=== PATIENT | female | born 1970 | race Caucasian/White ===

== ENCOUNTER 2016-12-21 15:26 | Emergency (ER) | payer MEDICAID ==
[2016-12-21] MEDS ORDERED: HYDROmorphone 1 MG/ML Syringe IM ONE (16:54)
--- NOTE | 2016-12-21 16:57 | EDM.PDOC ---
ED HPI GENERAL MEDICAL PROBLEM - General Chief Complaint: General Stated Complaint: SENT FROM DENTAL CLINIC WITH HIGH BP Time Seen by Provider: 12/21/16 16:51 Source of Information: Reports: Patient, RN Notes Reviewed History Limitations: Reports: No Limitations - History of Present Illness INITIAL COMMENTS - FREE TEXT/NARRATIVE: 46-year-old female presents emergency department today for elevated blood pressure she was sent over from the dental clinic recently had some dental work done blood pressure in the dental clinic was systolics over 202 center for further evaluation, she states normally her blood pressure is within normal limits takes no medications however she is in a lot of pain from her recent dental procedure Right Tooth/Teeth Pain Score (Numeric/FACES): 9 - Related Data Allergies Allergy/AdvReac Type Severity Reaction Status Date / Time diflunisal Allergy Difficulty Verified 12/21/16 16:26 Breathing fluconazole [From Diflucan] Allergy Tachycardia Verified 12/21/16 16:26 Home Meds: Home Meds NK [No Known Home Meds] 12/21/16 [History] Past Medical History HEENT History: Reports: Impaired Vision 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: , Other (See Below) Other OB/BYN History: part of cervix removed Musculoskeletal History: Reports: Back Pain, Chronic, Neck Pain, Chronic, Osteoarthritis Neurological History: Reports: Migraines Hematologic History: Reports: B12 Deficiency - Past Surgical History Other HEENT Surgeries/Procedures: MIGRAINES Female Surgical History: Reports: Other (See Below) Social & Family History - Tobacco Use Smoking Status *Q: Current Some Day Smoker Years of Tobacco use: 30 Packs/Tins Daily: 1 Used Tobacco, but Quit: No Second Hand Smoke Exposure: No - Caffeine Use Caffeine Use: Reports: Coffee, Soda, Tea - Alcohol Use Days Per Week of Alcohol Use: 1 Number of Drinks Per Day: 5 Total Drinks Per Week: 5 - Recreational Drug Use Recreational Drug Use: No - Living Situation & Occupation Living situation: Reports: , with Family ED ROS GENERAL - Review of Systems Review Of Systems: See Below HEENT: Reports: Dental Pain ED EXAM, GENERAL - Physical Exam Exam: See Below Exam Limited By: No Limitations General Appearance: Alert, WD/WN, No Apparent Distress Respiratory/Chest: No Respiratory Distress, Lungs Clear, Normal Breath Sounds, No Accessory Muscle Use Cardiovascular: Regular Rate, Rhythm, No Murmur Course - Vital Signs Last Recorded V/S: Last Vital Signs Temp 98.8 F 12/21/16 15:40 Pulse 75 12/21/16 17:37 Resp 15 12/21/16 15:40 BP 164/99 H 12/21/16 17:37 Pulse Ox 99 12/21/16 17:37 - Orders/Labs/Meds Meds: Medications Discontinued Medications Generic Name Dose Route Start Last Admin Trade Name John PRN Reason Stop Dose Admin Hydromorphone HCl 1 mg 12/21/16 16:54 12/21/16 17:13 Dilaudid IM 12/21/16 16:55 1 mg ONETIME ONE Administration Departure - Departure Time of Disposition: 18:28 Disposition: Home, Self-Care 01 Condition: Good Clinical Impression: Hypertensive urgency - Discharge Information Forms: ED Department Discharge Additional Instructions: continue to use ibuprofen for baseline pain control, use Percocet for breakthrough pain, Please followup with your primary care provider in 3-5 days if not better, please call return to the emergency department with worsening of symptoms. - Assessment/Plan Plan: Assessment Acuity = acute Site and laterality = hypertensive urgency Etiology = probably secondary to pain Manifestations = none Location of injury = Home Lab values = none Plan she was given 1 mg of Dilaudid this did reduce her blood pressure last systolic 165/98 the diastolic plan is discharge home with Percocet total #10 keep dentist appointments and follow-up with primary care for blood pressure check 3- 5 days Patient was in agreement with the plan all questions were answered, they were instructed to return to the emergency department or call for worsening symptoms. This note was dictated using [employer] voice recognition software please call with any questions.
[2016-12-21 17:54] VITALS: BP 164/99
== END 2016-12-21 18:35 | disposition home or self-care (01) ==
LOC: JP.ED 15:26
DX: I16.0 Hypertensive urgency (principal); H54.7 Unspecified visual loss; G43.909 Migraine, unspecified, not intractable, without status migrainosus; F17.210 Nicotine dependence, cigarettes, uncomplicated; M19.90 Unspecified osteoarthritis, unspecified site; Z88.8 Allergy status to other drugs, medicaments and biological substances
CPT/HCPCS: 96372; 99283; J1170

== ENCOUNTER 2017-01-25 02:07 | Emergency (ER) | payer MEDICAID ==
[2017-01-25 02:15] VITALS: BP 145/92
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
== END 2017-01-25 03:00 | disposition home or self-care (01) ==
LOC: JP.ED 02:07
DX: F10.129 Alcohol abuse with intoxication, unspecified (principal); R40.4 Transient alteration of awareness; M19.90 Unspecified osteoarthritis, unspecified site; F17.210 Nicotine dependence, cigarettes, uncomplicated; Z79.899 Other long term (current) drug therapy; Z88.8 Allergy status to other drugs, medicaments and biological substances
CPT/HCPCS: 99284; 99285

== ENCOUNTER 2017-03-16 01:29 | Emergency (ER) | payer MEDICAID ==
[2017-03-16 01:44] VITALS: BP 152/96
--- NOTE | 2017-03-16 01:52 | EDM.PDOC ---
ED HPI GENERAL MEDICAL PROBLEM - General Chief Complaint: Skin Complaint Stated Complaint: RING STUCK ON FINGER LEFT HAND Time Seen by Provider: 03/16/17 01:44 Source of Information: Reports: Patient History Limitations: Reports: No Limitations - History of Present Illness INITIAL COMMENTS - FREE TEXT/NARRATIVE: comes in because her ring, which she has previously worn in the past, is too tight on her ring finger. She's gained weight since last time that she wore the ring. Her finger distal to the ring a swollen and she was unable to remove the Ring Ring has been resized and does have a hinge Left Hand Pain Score (Numeric/FACES): 2 - Related Data Allergies Allergy/AdvReac Type Severity Reaction Status Date / Time diflunisal Allergy Difficulty Verified 03/16/17 01:38 Breathing fluconazole [From Diflucan] Allergy Tachycardia Verified 03/16/17 01:38 Home Meds: Home Meds ALPRAZolam [Xanax] 0.5 mg PO BEDTIME PRN 01/25/17 [History] Cyanocobalamin (Vitamin B12) [Vitamin B12] 1 tab PO DAILY 01/25/17 [History] Ibuprofen [Ibuprofen] 800 mg PO TID PRN 01/25/17 [History] Past Medical History HEENT History: Reports: Impaired Vision 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: , Other (See Below) Other OB/BYN History: part of cervix removed Musculoskeletal History: Reports: Back Pain, Chronic, Neck Pain, Chronic, Osteoarthritis Neurological History: Reports: Migraines Hematologic History: Reports: B12 Deficiency - Infectious Disease History Infectious Disease History: Reports: Chicken Pox - Past Surgical History Other HEENT Surgeries/Procedures: MIGRAINES Female Surgical History: Reports: Other (See Below) Social & Family History - Tobacco Use Smoking Status *Q: Current Every Day Smoker Years of Tobacco use: 30 Packs/Tins Daily: 1 Used Tobacco, but Quit: No Second Hand Smoke Exposure: Yes - Caffeine Use Caffeine Use: Reports: Coffee, Tea - Alcohol Use Days Per Week of Alcohol Use: 2 Number of Drinks Per Day: 4 Total Drinks Per Week: 8 - Recreational Drug Use Recreational Drug Use: No - Living Situation & Occupation Living situation: Reports: , with Family ED ROS GENERAL - Review of Systems Review Of Systems: ROS reveals no pertinent complaints other than HPI. 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
== END 2017-03-16 02:06 | disposition home or self-care (01) ==
LOC: JP.ED 01:29
DX: S60.445A External constriction of left ring finger, initial encounter (principal); F17.210 Nicotine dependence, cigarettes, uncomplicated; M19.90 Unspecified osteoarthritis, unspecified site; Z88.8 Allergy status to other drugs, medicaments and biological substances; W49.04XA Ring or other jewelry causing external constriction, initial encounter
CPT/HCPCS: 99283

== ENCOUNTER 2017-11-07 02:58 | Emergency (ER) | payer MEDICAID ==
[2017-11-07 03:10] VITALS: BP 122/56
--- NOTE | 2017-11-07 03:44 | EDM.PDOCBH ---
ED HPI GENERAL MEDICAL PROBLEM - General Chief Complaint: Drug or Alcohol Abuse Stated Complaint: MEDICAL [facility]IA [facility] Time Seen by Provider: 11/07/17 03:33 Source of Information: Reports: Patient, RN Notes Reviewed History Limitations: Reports: No Limitations - History of Present Illness INITIAL COMMENTS - FREE TEXT/NARRATIVE: 47-year-old female resents emergency department for psychiatric evaluation, family members were concerned that she is trying to harm herself she is Gnosticism and she has used alcohol, unfortunately none of the family members are present she is brought in by EMS services for further evaluation. 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: IV/IO - Related Data Allergies Allergy/AdvReac Type Severity Reaction Status Date / Time diflunisal Allergy Difficulty Verified 11/07/17 03:09 Breathing fluconazole [From Diflucan] Allergy Tachycardia Verified 11/07/17 03:09 Home Meds: Home Meds Cyanocobalamin (Vitamin B12) [Vitamin B12] 1 tab PO DAILY 01/25/17 [History] Ibuprofen 800 mg PO TID PRN 01/25/17 [History] Acetaminophen [Tylenol Extra Strength] 2 tab PO QID PRN 11/07/17 [History] ClonazePAM [KlonoPIN] 1 tab PO BID 11/07/17 [History] Cyclobenzaprine [Flexeril] 10 mg PO BID PRN 11/07/17 [History] Ibuprofen [Ibu] 1 tab PO TID PRN 11/07/17 [History] Metoprolol Succinate [Toprol XL] 25 mg PO DAILY 11/07/17 [History] Phentermine HCl 15 mg PO DAILY PRN 11/07/17 [History] Ranitidine HCl [Zantac] 150 mg PO BID PRN 11/07/17 [History] traMADol [Ultram] 50 mg PO TID PRN 11/07/17 [History] Past Medical History HEENT History: Reports: Impaired Vision Cardiovascular History: Reports: Hypertension Gastrointestinal History: Reports: GERD 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: , Other (See Below) Other OB/BYN History: part of cervix removed Musculoskeletal History: Reports: Back Pain, Chronic, Neck Pain, Chronic, Osteoarthritis Neurological History: Reports: Migraines Psychiatric History: Reports: Anxiety, Depression Hematologic History: Reports: B12 Deficiency - Infectious Disease History Infectious Disease History: Reports: Chicken Pox - Past Surgical History Other HEENT Surgeries/Procedures: MIGRAINES Female Surgical History: Reports: Other (See Below) Social & Family History - Tobacco Use Smoking Status *Q: Current Every Day Smoker Years of Tobacco use: 30 Packs/Tins Daily: 1 - Caffeine Use Caffeine Use: Reports: Coffee, Tea - Alcohol Use Days Per Week of Alcohol Use: 1 Number of Drinks Per Day: 2 Total Drinks Per Week: 2 - Recreational Drug Use Recreational Drug Use: No - Living Situation & Occupation Living situation: Reports: , with Family ED ROS GENERAL - Review of Systems Review Of Systems: See Below Constitutional: Reports: No Symptoms Respiratory: Reports: No Symptoms Cardiovascular: Reports: No Symptoms GI/Abdominal: Reports: No Symptoms Psychiatric: Reports: Agitation. Denies: Depression, Homicidal Ideation, Suicidal Ideation ED EXAM, BEHAVIORAL HEALTH - Physical Exam Exam: See Below Exam Limited By: No Limitations General Appearance: Alert, WD/WN, No Apparent Distress Respiratory/Chest: No Respiratory Distress Psychiatric: Alert, Oriented, Tearful, Agitated. No: Anglican Delusions, Suicidal Plan, Suicidal Thoughts, Auditory Hallucinations, Visual Hallucinations , Pressured Speech, Paranoid Thoughts, Threatening Behavior COURSE, BEHAVIORAL HEALTH COMP - Course Vital Signs: Last Vital Signs Temp 99.0 F 11/07/17 03:05 Pulse 82 11/07/17 03:05 Resp 18 11/07/17 03:05 BP 122/56 L 11/07/17 03:05 Pulse Ox 95 11/07/17 03:05 Departure - Departure Time of Disposition: 03:44 Disposition: Home, Self-Care 01 Condition: Fair Clinical Impression: Alcohol abuse - Discharge Information Referrals: PCP,None [Primary Care Provider] - Additional Instructions: Please followup with your primary care provider in 3-5 days if not better, please call return to the emergency department with worsening of symptoms. - Assessment/Plan Plan: Assessment Acuity = acute Site and laterality = social conflict Etiology = alcohol and Islamic shinto Manifestations = none Location of injury = Home Lab values = none Plan Discharge to home follow-up primary care as needed This note was dictated using [employer] voice recognition software please call with any questions on syntax or grammar.
== END 2017-11-07 03:50 | disposition home or self-care (01) ==
LOC: JP.ED 02:58
DX: F10.10 Alcohol abuse, uncomplicated (principal); F17.210 Nicotine dependence, cigarettes, uncomplicated; I10 Essential (primary) hypertension; K21.9 Gastro-esophageal reflux disease without esophagitis; F41.9 Anxiety disorder, unspecified; F32.9 Major depressive disorder, single episode, unspecified; Z79.899 Other long term (current) drug therapy; Z88.8 Allergy status to other drugs, medicaments and biological substances
CPT/HCPCS: 99285

== ENCOUNTER 2018-07-19 20:55 | Emergency (ER) | payer MEDICAID ==
[2018-07-19 21:06] VITALS: BP 117/49
[2018-07-19] MEDS ORDERED: Albuterol/Ipratropium 3.0-0.5 MG/3 ML Neb Soln NEB ONE (21:22)
--- NOTE | 2018-07-19 21:34 | EDM.PDOCBH ---
ED HPI GENERAL MEDICAL PROBLEM - General Chief Complaint: Drug or Alcohol Abuse Stated Complaint: MEDICAL VIA [facility] Time Seen by Provider: 07/19/18 21:05 Source of Information: Reports: Patient, EMS History Limitations: Reports: Intoxication - History of Present Illness INITIAL COMMENTS - FREE TEXT/NARRATIVE: 48-year-old female brought in by ambulance due to extreme intoxication, her family called the ambulance. She is upset that she is here, she is not suicidal and wants to go home. She has a very persistent cough that has been bothering her for several days, apparently she called her provider yesterday but is unable to provide us with which she was told. No fevers or chills. Denies pain. She does have frequent vomiting from both the cough and the alcohol intoxication. Onset: Unknown/Unsure Associated Symptoms: Reports: Cough, Nausea/Vomiting, Shortness of Breath. Denies: Chest Pain, Fever/Chills - Related Data Allergies Allergy/AdvReac Type Severity Reaction Status Date / Time diflunisal Allergy Difficulty Verified 07/19/18 21:07 Breathing fluconazole [From Diflucan] Allergy Tachycardia Verified 07/19/18 21:07 Home Meds: Home Meds Ibuprofen 800 mg PO TID PRN 01/25/17 [History] Metoprolol Succinate [Toprol XL] 25 mg PO DAILY 11/07/17 [History] DULoxetine HCl [Duloxetine HCl] 60 mg PO DAILY 06/10/18 [History] Past Medical History HEENT History: Reports: Impaired Vision Cardiovascular History: Reports: Hypertension Gastrointestinal History: Reports: GERD 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: , Other (See Below) 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 Musculoskeletal History: Reports: Back Pain, Chronic, Neck Pain, Chronic, Osteoarthritis Neurological History: Reports: Migraines Psychiatric History: Reports: Anxiety, Depression, Emotional Problems, Suicidal Ideation Hematologic History: Reports: B12 Deficiency - Infectious Disease History Infectious Disease History: Reports: Chicken Pox - Past Surgical History HEENT Surgical History: Reports: Other (See Below) Other HEENT Surgeries/Procedures: MIGRAINES Female Surgical History: Reports: Other (See Below) Social & Family History - Tobacco Use Smoking Status *Q: Current Every Day Smoker Years of Tobacco use: 32 Packs/Tins Daily: 0.5 - Caffeine Use Caffeine Use: Reports: Coffee - Alcohol Use Days Per Week of Alcohol Use: 3 Number of Drinks Per Day: 3 Total Drinks Per Week: 9 - Recreational Drug Use Recreational Drug Use: No - Living Situation & Occupation Living situation: Reports: , with Family ED ROS GENERAL - Review of Systems Review Of Systems: See Below Constitutional: Denies: Fever, Chills HEENT: Reports: No Symptoms Respiratory: Reports: Shortness of Breath, Wheezing, Cough GI/Abdominal: Reports: Nausea, Vomiting. Denies: Diarrhea : Reports: No Symptoms Skin: Reports: No Symptoms Neurological: Denies: Headache ED EXAM, BEHAVIORAL HEALTH - Physical Exam Exam: See Below Exam Limited By: Intoxication General Appearance: Alert, No Apparent Distress Eye Exam: Bilateral Eye: Normal Inspection Throat/Mouth: Normal Inspection Head: Atraumatic Respiratory/Chest: No Respiratory Distress, Wheezing (A few scattered expiratory wheezes are heard) Cardiovascular: Regular Rate, Rhythm Neurological: Alert Psychiatric: Flat Affect, Other (Fairly intoxicated) Skin Exam: Warm, Dry COURSE, BEHAVIORAL HEALTH COMP - Course Vital Signs: Last Vital Signs Temp 96.5 F 07/19/18 21:03 Pulse 76 07/19/18 21:03 Resp 16 07/19/18 21:03 BP 117/49 L 07/19/18 21:03 Pulse Ox 95 07/19/18 21:03 Orders, Labs, Meds: Active Orders 24 hr Category Date Time Status RT Aerosol Therapy [RC] ASDIRECTED Care 07/19/18 21:22 Active Saline Lock Insert [OM.PC] Routine Oth 07/19/18 22:00 Ordered Medications Discontinued Medications Generic Name Dose Route Start Last Admin Trade Name John PRN Reason Stop Dose Admin Acetaminophen 1,000 mg 07/19/18 22:07 07/19/18 22:15 Tylenol Extra Strength PO 07/19/18 22:08 1,000 mg ONETIME ONE Administration Albuterol/Ipratropium 3 ml 07/19/18 21:22 07/19/18 21:29 Duoneb 3.0-0.5 Mg/3 Ml NEB 07/19/18 21:23 3 ml ONETIME ONE Administration Azithromycin 500 mg 07/19/18 22:07 07/19/18 22:15 Zithromax PO 07/19/18 22:08 500 mg ONETIME ONE Administration Methylprednisolone Sodium Succinate 125 mg 07/19/18 22:00 07/19/18 22:08 Solu-Medrol IVPUSH 07/19/18 22:01 125 mg ONETIME ONE Administration Sodium Chloride 10 ml 07/19/18 22:00 07/19/18 22:08 Saline Flush FLUSH 10 ml ASDIRECTED PRN Administration Keep Vein Open Re-Assessment/Re-Exam: When I went into the exam room to visit with the patient, she started coughing and it was intractable. She had intermittent vomiting as well. Due to the wheezing she was given a DuoNeb, and a two-view chest x-ray was ordered. Patient returned from x-ray markedly improved, no longer coughing and no shortness of breath. Wheezing was gone. An IV was started and she was given 125 mg of Solu-Medrol, 500 mg of oral Zithromax, and 1000 mg of Tylenol for headache. She'll be discharged with a prescription for Zithromax, encouraged to avoid smoking and alcohol and follow up as needed Departure - Departure Time of Disposition: 22:38 Disposition: Home, Self-Care 01 Condition: Fair Clinical Impression: Alcohol abuse, Bronchitis - Discharge Information Instructions: Alcohol Intoxication, [id number] Referrals: PCP,None [Primary Care Provider] - Forms: ED Department Discharge Care Plan Goals: Final prescription for antibiotic tomorrow and take as directed. Use inhalers as needed for wheezing, and avoid alcohol and cigarettes. Return anytime if worsening, or consider rechecking in 2-3 days if not improving satisfactorily. - My Orders Last 24 Hours: My Active Orders 07/19/18 21:22 RT Aerosol Therapy [RC] ASDIRECTED 07/19/18 22:00 Saline Lock Insert [OM.PC] Routine - Assessment/Plan Last 24 Hours: My Active Orders 07/19/18 21:22 RT Aerosol Therapy [RC] ASDIRECTED 07/19/18 22:00 Saline Lock Insert [OM.PC] Routine
[2018-07-19] MEDS ORDERED: methylPREDNISolone Sodium Succinate 125 MG/2 ML SDV IVPUSH ONE (22:00)
[2018-07-19] MEDS ORDERED: Sodium Chloride 0.9% 10 ML Syringe FLUSH PRN (22:00)
[2018-07-19] MEDS ORDERED: Azithromycin 250 MG Tab PO ONE (22:07)
[2018-07-19] MEDS ORDERED: Acetaminophen 500 MG Tab PO ONE (22:07)
--- NOTE | 2018-07-19 22:15 | CRLCR ---
INDICATION: Cough TECHNIQUE: Chest radiograph 2 views COMPARISON: None FINDINGS: Mediastinum: The mediastinum is normal in appearance. The heart silhouette is normal in size and morphology. Lung: Both lungs are unremarkable in appearance. No sign of pleural effusion seen. No pneumothorax is identified. Musculoskeletal: Unremarkable for age. IMPRESSION: 1. No acute cardiopulmonary disease is seen. Dictated by: Jose F Choudhary MD @ 07/19/2018 22:14:37 (Electronically Signed)
== END 2018-07-19 22:38 | disposition home or self-care (01) ==
LOC: JP.ED 20:55
DX: F10.129 Alcohol abuse with intoxication, unspecified (principal); J40 Bronchitis, not specified as acute or chronic; I10 Essential (primary) hypertension; F17.210 Nicotine dependence, cigarettes, uncomplicated; Z88.8 Allergy status to other drugs, medicaments and biological substances; Z79.899 Other long term (current) drug therapy
CPT/HCPCS: 71046; 94640; 96374; 99284; A9270; J2930; J7620-GY

== ENCOUNTER 2018-08-28 02:03 | Emergency (ER) | payer MEDICAID ==
[2018-08-28] MEDS ORDERED: Sodium Chloride 0.9% 10 ML Syringe FLUSH PRN (02:34)
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
[2018-08-28] MEDS ORDERED: Sodium Chloride 0.9% 1,000 ML IV SCH (02:45)
[2018-08-28 03:12] LABS: ACETAMINOPHEN < 2.0 ug/mL (10.0-30.0)
[2018-08-28] MEDS ORDERED: Lactated Ringers 1,000 ML IV ONE ×3 (04:06→06:50)
[2018-08-28 06:54] VITALS: BP 102/58
== END 2018-08-28 09:49 | disposition home or self-care (01) ==
LOC: JP.ED 02:03
DX: F10.129 Alcohol abuse with intoxication, unspecified (principal); Y90.7 Blood alcohol level of 200-239 mg/100 ml
CPT/HCPCS: 36415; 80053; 85025; 96360; 96361; 99284; G0480; J7030; J7120

== ENCOUNTER 2019-06-23 14:31 | Emergency (ER) | payer MEDICAID ==
[2019-06-23 14:48] VITALS: BP 131/68; PULSE 74
[2019-06-23] MEDS ORDERED: fentaNYL 100 MCG/2 ML SDV NASBOTH ONE (15:07)
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
--- NOTE | 2019-06-23 16:08 | CRLUS ---
Indication: Left x-ray pain and lump post radical mastectomy of left breast. Technique: Left axillary ultrasound was performed. Comparison: None Findings: Within the left axilla, a fluid collection is identified measuring 2.8 x 2.1 by 2.3 cm in size. This contains low-level degrees dependently. Two other smaller anechoic areas with debris are identified also within the axilla. These both measure approximately 6 to 8 mm in size. These are most likely normal left axillary lymph nodes. No suspicious solid masses are identified within the left axilla. No suspicious lymphadenopathy is identified. Impression: Findings consistent with a left axillary hematoma/seroma. Aspiration could be considered. Given the clinical scenario, the fluid to be sent to laboratory for analysis to exclude an infection. Dictated by Carey Galvan MD @ Jun 23 2019 4:03PM Signed by Dr. Carey Galvan @ Jun 23 2019 4:07PM
== END 2019-06-23 17:00 | disposition home or self-care (01) ==
LOC: JP.ED 14:31
DX: L76.32 Postprocedural hematoma of skin and subcutaneous tissue following other procedure (principal); I10 Essential (primary) hypertension; J44.9 Chronic obstructive pulmonary disease, unspecified; F41.9 Anxiety disorder, unspecified; F17.210 Nicotine dependence, cigarettes, uncomplicated; Z79.899 Other long term (current) drug therapy; Z88.8 Allergy status to other drugs, medicaments and biological substances
CPT/HCPCS: 76881; 99283; J3010

== ENCOUNTER 2020-03-31 03:13 | Emergency (ER) | payer MEDICAID ==
[2020-03-31 03:27] VITALS: BP 145/82; PULSE 61
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
[2020-03-31] MEDS ORDERED: Ketorolac 30 MG/ML SDV IVPUSH ONE (03:51)
[2020-03-31] MEDS ORDERED: Sodium Chloride 0.9% 10 ML Syringe FLUSH PRN (03:51)
[2020-03-31] MEDS ORDERED: diphenhydrAMINE 50 MG/ML SDV IVPUSH ONE (03:52)
[2020-03-31] MEDS ORDERED: Prochlorperazine 10 MG/2 ML SDV IVPUSH ONE (03:52)
[2020-03-31] MEDS ORDERED: Sodium Chloride 0.9% 1,000 ML IV ONE (03:53)
== END 2020-03-31 05:32 | disposition home or self-care (01) ==
LOC: JP.ED 03:13
DX: G43.909 Migraine, unspecified, not intractable, without status migrainosus (principal); I10 Essential (primary) hypertension; J44.9 Chronic obstructive pulmonary disease, unspecified; F32.9 Major depressive disorder, single episode, unspecified; F41.9 Anxiety disorder, unspecified; Z88.3 Allergy status to other anti-infective agents; Z88.6 Allergy status to analgesic agent; Z79.899 Other long term (current) drug therapy; Z87.891 Personal history of nicotine dependence
CPT/HCPCS: 96374; 96375; 99283; J0780; J1200; J1885; J7030

== ENCOUNTER 2020-09-22 21:20 | Emergency (ER) | payer MEDICAID ==
[2020-09-22] MEDS ORDERED: Aspirin 81 MG Tab.Chew PO ONE (21:55)
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
[2020-09-22 23:46] VITALS: BP 140/78; PULSE 66
[2020-09-22] MEDS ORDERED: Magnesium Oxide 400 MG Tab PO ONE (23:58)
--- NOTE | 2020-09-23 09:33 | CR ---
CHEST: 2 view CLINICAL HISTORY:Chest pain COMPARISON:2019 FINDINGS: The heart size, pulmonary vascularity and hilar structures are normal. No infiltrate effusion or pneumothorax is seen. IMPRESSION: No acute cardiopulmonary process.
== END 2020-09-23 00:30 | disposition home or self-care (01) ==
LOC: JP.ED 21:20
DX: R07.89 Other chest pain (principal); E83.42 Hypomagnesemia; I10 Essential (primary) hypertension; J44.9 Chronic obstructive pulmonary disease, unspecified; K21.9 Gastro-esophageal reflux disease without esophagitis; Z87.891 Personal history of nicotine dependence; Z88.8 Allergy status to other drugs, medicaments and biological substances; Z79.899 Other long term (current) drug therapy
CPT/HCPCS: 36415; 71046; 80053; 83735; 84484; 85025; 93005; 99285; A9270

== ENCOUNTER 2020-11-27 18:14 | Emergency (ER) | payer MEDICAID ==
[2020-11-27 18:55] VITALS: BP 176/82; PULSE 76
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
[2020-11-27] MEDS ORDERED: Dexamethasone 4 MG/ML SDV IVPUSH ONE (19:22)
[2020-11-27] MEDS ORDERED: diphenhydrAMINE 50 MG/ML SDV IVPUSH ONE (19:22)
[2020-11-27] MEDS ORDERED: Prochlorperazine 10 MG/2 ML SDV IVPUSH ONE (19:22)
[2020-11-27] MEDS ORDERED: Sodium Chloride 0.9% 10 ML Syringe FLUSH PRN (19:22)
[2020-11-27] MEDS ORDERED: Ketorolac 30 MG/ML SDV IVPUSH ONE (19:22)
== END 2020-11-27 21:21 | disposition home or self-care (01) ==
LOC: JP.ED 18:14
DX: G43.909 Migraine, unspecified, not intractable, without status migrainosus (principal); I10 Essential (primary) hypertension; K21.9 Gastro-esophageal reflux disease without esophagitis; J44.9 Chronic obstructive pulmonary disease, unspecified; Z79.899 Other long term (current) drug therapy; Z88.8 Allergy status to other drugs, medicaments and biological substances
CPT/HCPCS: 81025; 96374; 96375; 99283; 99284; J0780; J1100; J1200; J1885

== ENCOUNTER 2021-07-20 19:34 | Emergency (ER) | payer MEDICAID ==
[2021-07-20 20:57] LABS: CORONAVIRUS COVID-19 NAA POSITIVE (NEGATIVE)
[2021-07-20] MEDS ORDERED: Dexamethasone 4 MG/ML SDV IVPUSH STA (21:16)
[2021-07-20 21:41] VITALS: BP 106/64; PULSE 57
== END 2021-07-20 22:26 | disposition home or self-care (01) ==
LOC: JP.ED 19:34
DX: U07.1 COVID-19 (principal); J12.82 Pneumonia due to coronavirus disease 2019; I10 Essential (primary) hypertension; J44.9 Chronic obstructive pulmonary disease, unspecified; K21.9 Gastro-esophageal reflux disease without esophagitis; M19.90 Unspecified osteoarthritis, unspecified site; Z88.8 Allergy status to other drugs, medicaments and biological substances; Z79.899 Other long term (current) drug therapy
CPT/HCPCS: 0241U; 36415; 71045; 80053; 85025; 85379; 86140; 96374; 99285; J1100

== ENCOUNTER 2021-07-31 18:39 | Emergency (ER) | payer MEDICAID ==
[2021-07-31 18:52] VITALS: BP 144/79; PULSE 68
== END 2021-07-31 19:44 | disposition home or self-care (01) ==
LOC: JP.ED 18:39
DX: G44.1 Vascular headache, not elsewhere classified (principal); I10 Essential (primary) hypertension; J44.9 Chronic obstructive pulmonary disease, unspecified; K21.9 Gastro-esophageal reflux disease without esophagitis; M19.90 Unspecified osteoarthritis, unspecified site; Z88.8 Allergy status to other drugs, medicaments and biological substances; Z79.899 Other long term (current) drug therapy; Z72.0 Tobacco use
CPT/HCPCS: 99282; 99283

== ENCOUNTER 2022-07-22 18:46 | Emergency (ER) | payer MEDICAID ==
[2022-07-22 19:23] VITALS: BP 168/78; PULSE 77
== END 2022-07-22 20:04 | disposition home or self-care (01) ==
LOC: JP.ED 18:46
DX: S16.1XXA Strain of muscle, fascia and tendon at neck level, initial encounter (principal); S60.212A Contusion of left wrist, initial encounter; M54.50 Low back pain, unspecified; I10 Essential (primary) hypertension; J44.9 Chronic obstructive pulmonary disease, unspecified; M19.90 Unspecified osteoarthritis, unspecified site; J45.909 Unspecified asthma, uncomplicated; K21.9 Gastro-esophageal reflux disease without esophagitis; Z72.0 Tobacco use; Z88.8 Allergy status to other drugs, medicaments and biological substances; W19.XXXA Unspecified fall, initial encounter
CPT/HCPCS: 99283

== ENCOUNTER 2022-11-04 20:34 | Inpatient (IN) | payer MEDICAID ==
[2022-11-04 21:06] LABS: APPEARANCE,URINE CLEAR (CLEAR); BILIRUBIN,URINE NEGATIVE (NEGATIVE); COLOR,URINE YELLOW (YELLOW); GLUCOSE,URINE NEGATIVE (NEGATIVE); KETONES,URINE NEGATIVE (NEGATIVE); LEUKOCYTE ESTERASE,URINE TRACE (NEGATIVE); NITRITE,URINE NEGATIVE (NEGATIVE); OCCULT BLOOD,URINE TRACE-INTACT (NEGATIVE); PROTEIN,URINE NEGATIVE (NEGATIVE); UROBILINOGEN,URINE 0.2 EU/dL (0.2-1.0)
[2022-11-04 21:11] LABS: AMORPHOUS SEDIMENT,URINE NOT SEEN; BACTERIA,URINE FEW; EPITHELIAL CELLS,URINE FEW; MUCUS,URINE NOT SEEN; RBC,URINE 0-5 (0-5); WBC,URINE 0-5 (0-5)
[2022-11-04 21:24] LABS: BASOPHILS ABSOLUTE AUTO 0.06 K/uL (0.00-0.10); BASOPHILS PERCENT AUTO 0.3 % (0.1-1.3); EOSINOPHILS ABSOLUTE AUTO 0.19 K/uL (0.00-0.40); HEMATOCRIT 33.7 % (34.3-46.0); HEMOGLOBIN 11.3 g/dL (11.2-15.5); IMMATURE GRAN ABSOLUTE AUTO 0.22 K/uL (0.00-0.23); IMMATURE GRAN PERCENT AUTO 1.2 % (0.0-0.7); LYMPHOCYTES ABSOLUTE AUTO 3.66 K/uL (0.8-3.3); LYMPHOCYTES PERCENT AUTO 19.2 % (11.4-47.7); MEAN CORPUSCULAR HEMOGLOBIN 32.5 pg (31.6-35.5); MEAN CORPUSCULAR HGB CONC 33.5 g/dL (31.6-35.5); MEAN CORPUSCULAR VOLUME 96.8 fL (81.4-99.0); MONOCYTES ABSOLUTE AUTO 1.21 K/uL (0.20-0.90); MONOCYTES PERCENT AUTO 6.4 % (3.3-12.6); NEUTROPHILS PERCENT AUTO 71.9 % (40.0-78.1); PLATELET COUNT,PLT 315 K/uL (130-375); RED BLOOD CELL COUNT 3.48 M/uL (3.77-5.24)
[2022-11-04 21:45] LABS: A/G RATIO 0.7 (1.2-2.2); ALANINE AMINOTRANSFERASE,ALT 9 U/L (12-78); ALBUMIN 2.6 g/dL (3.4-5.0); ALKALINE PHOSPHATASE 73 U/L (46-116); ASPARTATE AMNIOTRANSFERASE,AST 11 U/L (15-37); BILIRUBIN TOTAL 0.3 mg/dL (0.2-1.0); BLOOD UREA NITROGEN,BUN 8 mg/dL (7-18); CALCIUM 8.7 mg/dL (8.5-10.1); CARBON DIOXIDE,CO2 30 mmol/L (21-32); CHLORIDE,CL 98 mmol/L (100-108); CREATININE 0.6 mg/dL (0.6-1.0); EST CRCL DRUG DOSING (CG) 97.57 mL/min; ESTIMATED GFR 107 mL/min (>60); GLUCOSE RANDOM 94 mg/dL (74-106); POTASSIUM,K 3.5 mmol/L (3.6-5.2); PROTEIN TOTAL,TP 6.3 g/dL (6.4-8.2); SODIUM,NA 135 mmol/L (140-148)
[2022-11-04 21:47] LABS: ANION GAP 10.5 mmol/L (5.0-14.0)
[2022-11-04] MEDS: traZODone 50 MG Tab PO SCH (21:56)
[2022-11-04] MEDS: Dextrose 5%-0.9% NaCl 1,000 ML IV SCH (21:56)
[2022-11-04] MEDS: Ampicillin/Sulbactam Na 3 GM in Sodium Chloride 0.9% 100 ML IV SCH (21:56)
[2022-11-04] MEDS: HYDROmorphone 0.5 MG/0.5 ML Syringe IVPUSH PRN (23:17)
[2022-11-05] MEDS: Ampicillin/Sulbactam Na 3 GM in Sodium Chloride 0.9% 100 ML IV SCH ×4 (04:09→22:55)
[2022-11-05 04:32] LABS: BASOPHILS ABSOLUTE AUTO 0.06 K/uL (0.00-0.10); BASOPHILS PERCENT AUTO 0.3 % (0.1-1.3); EOSINOPHILS ABSOLUTE AUTO 0.06 K/uL (0.00-0.40); EOSINOPHILS PERCENT AUTO 0.3 % (0.0-5.4); HEMOGLOBIN 10.9 g/dL (11.2-15.5); IMMATURE GRAN ABSOLUTE AUTO 0.25 K/uL (0.00-0.23); LYMPHOCYTES ABSOLUTE AUTO 2.39 K/uL (0.8-3.3); MEAN CORPUSCULAR HEMOGLOBIN 32.6 pg (31.6-35.5); MEAN CORPUSCULAR HGB CONC 34.1 g/dL (31.6-35.5); MEAN CORPUSCULAR VOLUME 95.8 fL (81.4-99.0); MONOCYTES ABSOLUTE AUTO 1.55 K/uL (0.20-0.90); MONOCYTES PERCENT AUTO 6.5 % (3.3-12.6); NEUTROPHILS ABSOLUTE AUTO 19.61 K/uL (1.0-7.6); NEUTROPHILS PERCENT AUTO 81.9 % (40.0-78.1); PLATELET COUNT,PLT 308 K/uL (130-375); RED BLOOD CELL COUNT 3.34 M/uL (3.77-5.24); WHITE BLOOD CELL COUNT,WBC 23.9 K/uL (3.2-11.0)
[2022-11-05] MEDS: Dextrose 5%-0.9% NaCl 1,000 ML IV SCH ×2 (07:56→16:09)
[2022-11-05] MEDS: HYDROmorphone 0.5 MG/0.5 ML Syringe IVPUSH PRN (07:58)
[2022-11-05] MEDS ORDERED: HYDROmorphone/Normal Saline 6 MG/30 ML PCA Vial IV PRN (08:09)
[2022-11-05] MEDS ORDERED: diphenhydrAMINE 50 MG/ML SDV IVPUSH PRN (08:09)
[2022-11-05] MEDS ORDERED: Naloxone 0.4 MG/ML SDV IVPUSH PRN (08:09)
[2022-11-05] MEDS ORDERED: Ondansetron 4 MG/2 ML SDV IVPUSH PRN (08:09)
[2022-11-05] MEDS ORDERED: diphenhydrAMINE 25 MG Cap PO PRN (08:09)
[2022-11-05] MEDS: Pantoprazole 40 MG Tab.CR PO SCH (08:10)
[2022-11-05] MEDS: DULoxetine 30 MG Cap PO SCH (08:11)
[2022-11-05] MEDS ORDERED: Acetaminophen 500 MG Tab PO PRN (08:22)
[2022-11-05] MEDS ORDERED: Ketorolac 30 MG/ML SDV IVPUSH ONE (08:45)
[2022-11-05] MEDS ORDERED: DULoxetine 30 MG Cap PO SCH (09:00)
[2022-11-05] MEDS ORDERED: PROPRANOLOL 20 MG PO SCH (09:00)
[2022-11-05] MEDS ORDERED: Non-Formulary Medication 1 Each PO SCH (09:00)
[2022-11-05] MEDS: HYDROmorphone/Normal Saline 6 MG/30 ML PCA Vial IV PRN ×2 (09:32→17:46)
[2022-11-05] MEDS: Propranolol 40 MG Tab PO SCH ×2 (11:19→21:48)
[2022-11-05] MEDS: BIOTIN 10000 MCG PO SCH (11:20)
[2022-11-05] MEDS ORDERED: Non-Formulary Medication 1 Each (Trazodone Hcl [Trazodone Hcl] 100 MG Tablet) PO SCH (21:00)
[2022-11-05] MEDS: traZODone 50 MG Tab PO SCH (21:48)
[2022-11-06] MEDS: Dextrose 5%-0.9% NaCl 1,000 ML IV SCH ×3 (02:45→23:01)
[2022-11-06] MEDS: HYDROmorphone/Normal Saline 6 MG/30 ML PCA Vial IV PRN ×3 (03:17→19:21)
[2022-11-06] MEDS: Ampicillin/Sulbactam Na 3 GM in Sodium Chloride 0.9% 100 ML IV SCH ×4 (03:18→22:09)
[2022-11-06] MEDS ORDERED: Sodium Chloride 0.9% 10 ML Syringe FLUSH PRN (04:08)
[2022-11-06] MEDS ORDERED: Sodium Chloride 0.9% 50 ML IV ONE (04:08)
[2022-11-06] MEDS ORDERED: Iopamidol 612 MG/ML 100 ML Bottle IV PRN (04:08)
[2022-11-06 04:57] LABS: HEMATOCRIT 33.5 % (34.3-46.0); HEMOGLOBIN 10.8 g/dL (11.2-15.5); MEAN CORPUSCULAR HGB CONC 32.2 g/dL (31.6-35.5); MEAN CORPUSCULAR VOLUME 99.4 fL (81.4-99.0); RED BLOOD CELL COUNT 3.37 M/uL (3.77-5.24); WHITE BLOOD CELL COUNT,WBC 10.9 K/uL (3.2-11.0)
[2022-11-06 05:28] LABS: A/G RATIO 0.6 (1.2-2.2); ALANINE AMINOTRANSFERASE,ALT 9 U/L (12-78); ALBUMIN 2.3 g/dL (3.4-5.0); ALKALINE PHOSPHATASE 67 U/L (46-116); ASPARTATE AMNIOTRANSFERASE,AST 16 U/L (15-37); BILIRUBIN TOTAL 0.3 mg/dL (0.2-1.0); BLOOD UREA NITROGEN,BUN 1 mg/dL (7-18); CALCIUM 8.6 mg/dL (8.5-10.1); CARBON DIOXIDE,CO2 29 mmol/L (21-32); CHLORIDE,CL 104 mmol/L (100-108); CREATININE 0.6 mg/dL (0.6-1.0); EST CRCL DRUG DOSING (CG) 97.57 mL/min; ESTIMATED GFR 107 mL/min (>60); GLUCOSE RANDOM 115 mg/dL (74-106); MAGNESIUM 1.6 mg/dL (1.8-2.4); PHOSPHORUS 4.2 mg/dL (2.5-4.9); POTASSIUM,K 3.2 mmol/L (3.6-5.2); PROTEIN TOTAL,TP 6.1 g/dL (6.4-8.2); SODIUM,NA 140 mmol/L (140-148)
[2022-11-06 05:33] LABS: ANION GAP 10.2 mmol/L (5.0-14.0)
[2022-11-06] MEDS: Pantoprazole 40 MG Tab.CR PO SCH (07:54)
[2022-11-06] MEDS: DULoxetine 30 MG Cap PO SCH (09:09)
[2022-11-06] MEDS: Propranolol 40 MG Tab PO SCH ×2 (09:10→22:14)
[2022-11-06] MEDS: BIOTIN 10000 MCG PO SCH (09:10)
[2022-11-06] MEDS ORDERED: Cyanocobalamin (Vitamin B12) 1,000 MCG/ML SDV IM ONE (11:00)
[2022-11-06] MEDS: Potassium Chloride 10 MEQ in Premix Bag 1 BAG IV SCH ×6 (11:37→18:50)
[2022-11-06] MEDS: Bisacodyl 5 MG Tab PO SCH ×2 (11:41→22:06)
[2022-11-06] MEDS: Docusate Sodium 100 MG Cap PO SCH ×2 (11:41→22:06)
[2022-11-06] MEDS: Magnesium Sulfate/Water 2 GM in Premix Bag 1 BAG IV SCH ×3 (12:52→23:02)
[2022-11-06] MEDS: Ketorolac 30 MG/ML SDV IM PRN (14:12)
[2022-11-06] MEDS: traZODone 50 MG Tab PO SCH (22:06)
[2022-11-07 04:32] LABS: BASOPHILS ABSOLUTE AUTO 0.03 K/uL (0.00-0.10); BASOPHILS PERCENT AUTO 0.3 % (0.1-1.3); EOSINOPHILS ABSOLUTE AUTO 0.13 K/uL (0.00-0.40); EOSINOPHILS PERCENT AUTO 1.4 % (0.0-5.4); HEMATOCRIT 32.4 % (34.3-46.0); HEMOGLOBIN 10.4 g/dL (11.2-15.5); IMMATURE GRAN ABSOLUTE AUTO 0.05 K/uL (0.00-0.23); IMMATURE GRAN PERCENT AUTO 0.6 % (0.0-0.7); LYMPHOCYTES ABSOLUTE AUTO 1.64 K/uL (0.8-3.3); LYMPHOCYTES PERCENT AUTO 18.2 % (11.4-47.7); MEAN CORPUSCULAR HGB CONC 32.1 g/dL (31.6-35.5); MEAN CORPUSCULAR VOLUME 99.7 fL (81.4-99.0); MONOCYTES ABSOLUTE AUTO 0.76 K/uL (0.20-0.90); MONOCYTES PERCENT AUTO 8.4 % (3.3-12.6); NEUTROPHILS ABSOLUTE AUTO 6.39 K/uL (1.0-7.6); NEUTROPHILS PERCENT AUTO 71.1 % (40.0-78.1); PLATELET COUNT,PLT 294 K/uL (130-375); RED BLOOD CELL COUNT 3.25 M/uL (3.77-5.24)
[2022-11-07] MEDS: Ampicillin/Sulbactam Na 3 GM in Sodium Chloride 0.9% 100 ML IV SCH ×4 (04:36→22:09)
[2022-11-07 05:01] LABS: A/G RATIO 0.6 (1.2-2.2); ALANINE AMINOTRANSFERASE,ALT 8 U/L (12-78); ALBUMIN 2.2 g/dL (3.4-5.0); ALKALINE PHOSPHATASE 66 U/L (46-116); ASPARTATE AMNIOTRANSFERASE,AST 15 U/L (15-37); BILIRUBIN TOTAL 0.2 mg/dL (0.2-1.0); BLOOD UREA NITROGEN,BUN 1 mg/dL (7-18); CALCIUM 8.3 mg/dL (8.5-10.1); CARBON DIOXIDE,CO2 29 mmol/L (21-32); CHLORIDE,CL 103 mmol/L (100-108); CREATININE 0.5 mg/dL (0.6-1.0); EST CRCL DRUG DOSING (CG) 117.09 mL/min; ESTIMATED GFR 112 mL/min (>60); GLUCOSE RANDOM 114 mg/dL (74-106); PHOSPHORUS 3.5 mg/dL (2.5-4.9); POTASSIUM,K 4.3 mmol/L (3.6-5.2); PROTEIN TOTAL,TP 5.9 g/dL (6.4-8.2); SODIUM,NA 136 mmol/L (140-148)
[2022-11-07] MEDS: Magnesium Sulfate/Water 2 GM in Premix Bag 1 BAG IV SCH ×4 (05:13→23:38)
[2022-11-07 05:20] LABS: ANION GAP 8.3 mmol/L (5.0-14.0)
[2022-11-07] MEDS: Albuterol 90 MCG/6.7 GM Inhaler INH PRN ×2 (07:39→18:25)
[2022-11-07] MEDS: Ketorolac 30 MG/ML SDV IM PRN (07:40)
[2022-11-07] MEDS: Pantoprazole 40 MG Tab.CR PO SCH (07:42)
[2022-11-07] MEDS: Ibuprofen 600 MG Tab PO SCH ×3 (08:29→19:58)
[2022-11-07] MEDS: Docusate Sodium 100 MG Cap PO SCH ×2 (10:27→20:00)
[2022-11-07] MEDS: Bisacodyl 5 MG Tab PO SCH ×2 (10:27→20:00)
[2022-11-07] MEDS: DULoxetine 30 MG Cap PO SCH (10:27)
[2022-11-07] MEDS: Propranolol 40 MG Tab PO SCH ×2 (10:28→20:01)
[2022-11-07] MEDS: BIOTIN 10000 MCG PO SCH (10:28)
[2022-11-07] MEDS: Acetaminophen 500 MG Tab PO SCH ×3 (10:28→22:09)
[2022-11-07] MEDS: Dextrose 5%-0.9% NaCl 1,000 ML IV SCH (11:42)
[2022-11-07] MEDS: traZODone 50 MG Tab PO SCH (22:09)
[2022-11-08] MEDS: Ibuprofen 600 MG Tab PO SCH ×2 (03:09→08:23)
[2022-11-08] MEDS: Acetaminophen 500 MG Tab PO SCH ×2 (03:10→11:02)
[2022-11-08] MEDS: Ampicillin/Sulbactam Na 3 GM in Sodium Chloride 0.9% 100 ML IV SCH ×2 (03:11→11:02)
[2022-11-08] MEDS: Magnesium Sulfate/Water 2 GM in Premix Bag 1 BAG IV SCH (06:09)
[2022-11-08 07:35] VITALS: BP 126/64; PULSE 67
[2022-11-08] MEDS: Pantoprazole 40 MG Tab.CR PO SCH (08:23)
[2022-11-08] MEDS: Docusate Sodium 100 MG Cap PO SCH (08:23)
[2022-11-08] MEDS: DULoxetine 30 MG Cap PO SCH (08:24)
[2022-11-08] MEDS: Propranolol 40 MG Tab PO SCH (08:24)
[2022-11-08] MEDS: Bisacodyl 5 MG Tab PO SCH (08:24)
[2022-11-08] MEDS: BIOTIN 10000 MCG PO SCH (09:09)
[2022-11-08] MEDS ORDERED: Amoxicillin/Clavulanate K 875-125 MG Tab PO SCH ×2 (10:00)
== END 2022-11-08 11:25 | disposition other institution (70) | DRG 395 ==
LOC: JP.MS 20:34
PROVIDERS: ADMIT Internal Medicine; ATTEND Internal Medicine
DX: K35.80 Unspecified acute appendicitis (principal); I10 Essential (primary) hypertension; G47.00 Insomnia, unspecified; K21.9 Gastro-esophageal reflux disease without esophagitis; G89.29 Other chronic pain; M54.50 Low back pain, unspecified; E87.6 Hypokalemia; K52.9 Noninfective gastroenteritis and colitis, unspecified; F43.10 Post-traumatic stress disorder, unspecified; F10.10 Alcohol abuse, uncomplicated; F32.A Depression, unspecified; H54.7 Unspecified visual loss; J44.9 Chronic obstructive pulmonary disease, unspecified; M54.9 Dorsalgia, unspecified; F17.210 Nicotine dependence, cigarettes, uncomplicated; M19.90 Unspecified osteoarthritis, unspecified site; F41.9 Anxiety disorder, unspecified; G43.909 Migraine, unspecified, not intractable, without status migrainosus; Z90.10 Acquired absence of unspecified breast and nipple; Z85.3 Personal history of malignant neoplasm of breast; Z88.8 Allergy status to other drugs, medicaments and biological substances; Z98.890 Other specified postprocedural states
CPT/HCPCS: 36415; 74177; 80053; 81001; 83735; 84100; 85025; 85027; 87046; 87177; 87209; 87899; 89055; A9270-GY; J0295; J1170; J1885; J3420; J3475; J3480; J3490; Q9967; U0002

== ENCOUNTER 2023-10-04 06:01 | Emergency (ER) | payer MEDICAID ==
[2023-10-04 06:17] VITALS: PULSE 94
[2023-10-04] MEDS: Ketorolac 30 MG/ML SDV IM ONE (06:35)
[2023-10-04 06:57] LABS: CORONAVIRUS COVID-19 NAA NEGATIVE (NEGATIVE); INFLUENZA A NAA NEGATIVE (NEGATIVE); INFLUENZA B NAA POSITIVE (NEGATIVE); RESPIRATORY SYNCYTIAL VIR NAA NEGATIVE (NEGATIVE)
[2023-10-04 07:34] VITALS: BP 124/54
== END 2023-10-04 07:30 | disposition home or self-care (01) ==
LOC: JP.ED 06:01
DX: J10.1 Influenza due to other identified influenza virus with other respiratory manifestations (principal); I10 Essential (primary) hypertension; K21.9 Gastro-esophageal reflux disease without esophagitis; F17.210 Nicotine dependence, cigarettes, uncomplicated; Z88.8 Allergy status to other drugs, medicaments and biological substances; Z79.51 Long term (current) use of inhaled steroids; Z79.82 Long term (current) use of aspirin; Z79.899 Other long term (current) drug therapy
CPT/HCPCS: 0241U; 87651; 96372; 99284; J1885

== ENCOUNTER 2023-11-17 19:41 | Emergency (ER) | payer MEDICAID ==
[2023-11-17] MEDS: Naloxone 0.4 MG/ML SDV ONE (19:55)
[2023-11-17] MEDS ORDERED: Sodium Chloride 23.4% 77 MEQ in Dextrose 10% in Water 500 ML IV SCH (20:00)
[2023-11-17 20:03] LABS: BASOPHILS ABSOLUTE AUTO 0.06 K/uL (0.00-0.10); BASOPHILS PERCENT AUTO 0.6 % (0.1-1.3); EOSINOPHILS ABSOLUTE AUTO 0.07 K/uL (0.00-0.40); EOSINOPHILS PERCENT AUTO 0.7 % (0.0-5.4); HEMATOCRIT 41.7 % (34.3-46.0); HEMOGLOBIN 14.2 g/dL (11.2-15.5); IMMATURE GRAN PERCENT AUTO 0.2 % (0.0-0.7); LYMPHOCYTES ABSOLUTE AUTO 3.52 K/uL (0.8-3.3); LYMPHOCYTES PERCENT AUTO 35.7 % (11.4-47.7); MEAN CORPUSCULAR HEMOGLOBIN 32.3 pg (31.6-35.5); MEAN CORPUSCULAR HGB CONC 34.1 g/dL (31.6-35.5); MONOCYTES ABSOLUTE AUTO 0.82 K/uL (0.20-0.90); MONOCYTES PERCENT AUTO 8.3 % (3.3-12.6); NEUTROPHILS ABSOLUTE AUTO 5.37 K/uL (1.0-7.6); NEUTROPHILS PERCENT AUTO 54.5 % (40.0-78.1); PLATELET COUNT,PLT 261 K/uL (130-375); RED BLOOD CELL COUNT 4.39 M/uL (3.77-5.24); WHITE BLOOD CELL COUNT,WBC 9.9 K/uL (3.2-11.0)
[2023-11-17 20:04] LABS: IMMATURE GRAN ABSOLUTE AUTO 0.02 K/uL (0.00-0.23)
[2023-11-17 20:07] LABS: BASE EXCESS VENOUS -3.5 mm/L; CARBOXYHEMOGLOBIN 5.6 % (0.0-1.6); METHEMOGLOBIN 0.6 %; O2 SATURATION VENOUS 58.9; OXYHEMOGLOBIN 55.2 %; PCO2 VENOUS 43.1 mm/Hg; PH,VENOUS 7.328 (7.350-7.450); TOTAL HEMOGLOBIN 14.7 g/dL (12.0-16.0)
[2023-11-17 20:08] LABS: PO2 VENOUS 35.8 mm/Hg
[2023-11-17] MEDS ORDERED: Rocuronium 50 MG/5 ML Vial ONE (20:15)
[2023-11-17] MEDS ORDERED: Rocuronium 50 MG/5 ML Vial IVPUSH ONE (20:17)
[2023-11-17] MEDS ORDERED: Etomidate 2 MG/ML 10 ML SDV IVPUSH ONE (20:17)
[2023-11-17] MEDS: propofoL 100 ML IV SCH (20:28)
[2023-11-17] MEDS: Sodium Chloride 0.9% 1,000 ML IV SCH (20:28)
[2023-11-17 20:29] LABS: ALANINE AMINOTRANSFERASE,ALT 14 U/L (12-78); ALBUMIN 3.7 g/dL (3.4-5.0); ALKALINE PHOSPHATASE 93 U/L (46-116); ASPARTATE AMNIOTRANSFERASE,AST 25 U/L (15-37); BILIRUBIN TOTAL 0.4 mg/dL (0.2-1.0); BLOOD UREA NITROGEN,BUN 9 mg/dL (7-18); CALCIUM 9.3 mg/dL (8.5-10.1); CARBON DIOXIDE,CO2 21 mmol/L (21-32); CHLORIDE,CL 102 mmol/L (100-108); CREATININE 0.6 mg/dL (0.6-1.0); EST CRCL DRUG DOSING (CG) 108.13 mL/min; ESTIMATED GFR 107 mL/min (>60); GLUCOSE RANDOM 134 mg/dL (74-106); POTASSIUM,K 3.8 mmol/L (3.6-5.2); PROTEIN TOTAL,TP 7.5 g/dL (6.4-8.2); SODIUM,NA 137 mmol/L (140-148)
[2023-11-17 20:30] LABS: ACETAMINOPHEN < 0.0 ug/mL (10.0-144.9); ANION GAP 17.8 mmol/L (5.0-14.0)
[2023-11-17 21:42] LABS: AMPHETAMINES SCREEN, URINE NEGATIVE (NEGATIVE); BARBITURATE SCREEN,URINE NEGATIVE (NEGATIVE); BENZODIAZEPINES SCREEN,URINE NEGATIVE (NEGATIVE); METHADONE SCREEN, URINE NEGATIVE (NEGATIVE); METHAMPHETAMINES SCREEN, URINE NEGATIVE (NEGATIVE); OXYCODONE SCREEN,URINE NEGATIVE (NEGATIVE); PROPOXYPHENE SCREEN,URINE NEGATIVE (NEGATIVE); THC SCREEN,URINE 50 NG/ML NEGATIVE (NEGATIVE)
[2023-11-17 21:45] VITALS: BP 109/67; PULSE 57
[2023-11-17] MEDS ORDERED: Lidocaine 4% Top Soln 50 ML Bottle MUCMEM ONE (21:46)
[2023-11-17] MEDS: propofoL 100 ML ONE (23:59)
== END 2023-11-17 22:19 | disposition other institution (70) ==
LOC: JP.ED 19:41
DX: F10.129 Alcohol abuse with intoxication, unspecified (principal); I10 Essential (primary) hypertension; I25.10 Atherosclerotic heart disease of native coronary artery without angina pectoris; J44.9 Chronic obstructive pulmonary disease, unspecified; K21.9 Gastro-esophageal reflux disease without esophagitis; Z79.899 Other long term (current) drug therapy; Y90.6 Blood alcohol level of 120-199 mg/100 ml; Z79.82 Long term (current) use of aspirin; Z88.8 Allergy status to other drugs, medicaments and biological substances; Z88.1 Allergy status to other antibiotic agents
CPT/HCPCS: 31500; 36415; 43752; 51702; 71045; 80053; 80143; 80179; 80305; 80307; 82803; 82947; 83605; 85025; 93005; 93010; 96365; 96366; 99285; J2310; J2704; J7030